=== PATIENT | male | born 1960 | race African-American/Black ===

== ENCOUNTER 2019-01-11 22:45 | Emergency (ER) | payer MEDICAID ==
[~2019-01-11] VITALS: Ht 180.3 cm; Wt 86.0 kg
[2019-01-11] MEDS ORDERED: LORAZEPAM 2MG/ML CPJ IM ONE (23:45)
[2019-01-12 00:23] LABS: *BARBITURATES SCREEN URINE NEGATIVE (NEGATIVE)
[2019-01-12 00:24] LABS: *AMPHETAMINES SCREEN URINE NEGATIVE (NEGATIVE); *BENZODIAZEPINES SCREEN URINE NEGATIVE (NEGATIVE); *COCAINE SCREEN URINE NEGATIVE (NEGATIVE); CANNABINOID URINE SCREEN PRESUMTIVE POSITIVE (NEGATIVE); METHADONE URINE SCREEN NEGATIVE (NEGATIVE); OPIATES URINE SCREEN NEGATIVE (NEGATIVE); PHENCYCLIDINE URINE SCREEN NEGATIVE (NEGATIVE)
[2019-01-12 00:57] LABS: BASOPHILS % 0.6 % (0.0-2.0); EOSINOPHILS % 1.3 % (0.0-5.0); HEMOGLOBIN. 12.3 g/dL (14.0-18.0); LYMPHOCYTES % 29.4 % (20.0-50.0); MEAN CORPUSCULAR HEMOGLOBIN 29.9 pg (28.0-32.0); MEAN CORPUSCULAR VOLUME 89.6 fL (80.0-94.0); MEAN PLATELET VOLUME 8.2 fl (7.4-10.4); MONOCYTES % 5.3 % (2.0-8.0); NEUTROPHILS % 63.4 % (40.0-76.0); PLATELET 150 x1000/uL (130-400); RED BLOOD CELL COUNT 4.13 mill/uL (4.7-6.1); RED CELL DISTRIBUTION WIDTH 14.3 % (11.6-14.6)
[2019-01-12 01:03] LABS: CHLORIDE 109 mEq/L (98-107)
[2019-01-12 01:08] LABS: ETHANOL BLOOD 191 mg/dL
[2019-01-12] MEDS ORDERED: POTASSIUM CHLORIDE 20MEQ TABLET SR PO SCH (01:30)
[2019-01-12 06:00] VITALS: BP 110/69
== END 2019-01-12 11:08 | disposition home or self-care (01) ==
LOC: ER 23:31
DX: F29 Unspecified psychosis not due to a substance or known physiological condition (principal); R45.6 Violent behavior; I25.2 Old myocardial infarction
CPT/HCPCS: 36415; 80053; 80305; 80307; 80320; 80329; 85025; 96372; 99284; J2060; G0480

== ENCOUNTER 2021-11-02 22:42 | Emergency (ER) | payer MEDICAID ==
[~2021-11-02] VITALS: Ht 185.4 cm; Wt 91.0 kg
[2021-11-02 23:44] VITALS: BP 139/77
== END 2021-11-02 23:47 ==
LOC: ER 22:42
DX: R07.89 Other chest pain (principal); F91.8 Other conduct disorders; I25.2 Old myocardial infarction; F17.210 Nicotine dependence, cigarettes, uncomplicated; Z78.1 Physical restraint status
CPT/HCPCS: 93005; 99283

== ENCOUNTER 2023-06-27 11:12 | Emergency (ER) | payer MEDICAID ==
[~2023-06-27] VITALS: Ht 188 cm; Wt 79.0 kg
[2023-06-27 11:19] VITALS: BP 125/71; PULSE 82; RESP 20; TEMP 98.2; O2SAT 98
[2023-06-27] MEDS ORDERED: METOCLOPRAMIDE HCL 10MG/2ML VIAL IM ONE (11:30)
== END 2023-06-27 13:13 | disposition left against medical advice (07) ==
LOC: ER 11:59
DX: R06.02 Shortness of breath (principal); R06.6 Hiccough
CPT/HCPCS: 71045; 99283

== ENCOUNTER 2023-06-27 15:48 | Inpatient (IN) | payer MEDICAID, OTHER ==
[~2023-06-27] VITALS: Ht 193 cm; Wt 85.3 kg
[2023-06-27] MEDS ORDERED: IPRATROPIUM BROMIDE (0.02%) 0.5MG/2.5ML NEB HHN STA (16:16)
[2023-06-27] MEDS ORDERED: ALBUTEROL (0.083%) 2.5MG/3ML NEB HHN STA (16:16)
[2023-06-27 16:48] LABS: HEMOGLOBIN. 11.6 g/dL (14.0-18.0); MEAN CORPUSCULAR HEMOGLOBIN 29.6 pg (28.0-32.0); MEAN CORPUSCULAR HGB CONC 32.3 g/dL (31.0-37.0); MEAN CORPUSCULAR VOLUME 91.7 fL (80.0-94.0); MEAN PLATELET VOLUME 8.6 fl (7.4-10.4); PLATELET 212 x1000/uL (130-400); RED BLOOD CELL COUNT 3.92 mill/uL (4.7-6.1); RED CELL DISTRIBUTION WIDTH 12.8 % (11.6-14.6); WHITE BLOOD COUNT 13.4 x1000/uL (4.5-11.0)
[2023-06-27 16:54] LABS: DIFFERENTIAL COMMENT 1
[2023-06-27 17:11] LABS: CHLORIDE 99 mEq/L (98-107); INDEX HEMOLYSI 1 (1-3); INDEX ICTERIC 1 (1-4); INDEX LIPEMIC 1 (1-3); POTASSIUM 4.2 mEq/L (3.5-5.1); SODIUM 133 mEq/L (136-145)
[2023-06-27 17:21] LABS: ALANINE AMINOTRANSFERASE 26 IU/L (13-61); ALBUMIN 3.5 g/dL (3.4-5.0); ASPARTATE AMINOTRANSFERASE 22 IU/L (15-37); BILIRUBIN TOTAL 0.9 mg/dL (0.1-1.0); CARBON DIOXIDE 29 mEq/L (21-32); CREATININE 0.9 mg/dL (0.6-1.3); GLUCOSE 101 mg/dL (70-105); PROTEIN TOTAL 7.8 g/dL (6.0-8.3); TROPONIN I HIGH SENSITIVITY 4 ng/L (<78); UREA NITROGEN BLOOD 8 mg/dL (7-21)
[2023-06-27 17:55] LABS: PLATELET ESTIMATE NORMAL
[2023-06-27 18:11] VITALS: PULSE 80; RESP 20
[2023-06-27] MEDS ORDERED: CEFTRIAXONE 1GM PREMIX 50 ML IV ONE (18:30)
[2023-06-27] MEDS ORDERED: AZITHROMYCIN 500 MG in DEXT 5% WATER 250 ML IV SCH (18:30)
[2023-06-27] MEDS ORDERED: IPRATROPIUM BROMIDE (0.02%) 0.5MG/2.5ML NEB HHN NR (18:30)
[2023-06-27] MEDS ORDERED: ALBUTEROL (0.083%) 2.5MG/3ML NEB HHN NR ×2 (18:30)
[2023-06-27] MEDS ORDERED: AZITHROMYCIN 500MG/250ML 250 ML IV SCH (19:00)
[2023-06-28] VITALS (8 sets, daily range): BP systolic 85–132; BP diastolic 51–88; PULSE 60–79; RESP 18–20; TEMP 96.5–98.2
[2023-06-28] MEDS ORDERED: LORAZEPAM 0.5MG TABLET PO PRN
[2023-06-28] MEDS ORDERED: CLONIDINE 0.1MG TABLET PO PRN
[2023-06-28] MEDS ORDERED: SODIUM CHLORIDE 0.9% 1,000 ML IV NR
[2023-06-28] MEDS ORDERED: ACETAMINOPHEN 325MG TABLET PO PRN
[2023-06-28] MEDS ORDERED: ONDANSETRON HCL 4MG/2ML INJ IV PRN
[2023-06-28 07:29] LABS: BASOPHILS % 0.4 % (0.0-2.0); EOSINOPHILS % 0.3 % (0.0-5.0); HEMATOCRIT. 36.5 % (42.0-52.0); HEMOGLOBIN. 12.1 g/dL (14.0-18.0); LYMPHOCYTES % 8.6 % (20.0-50.0); MEAN CORPUSCULAR HEMOGLOBIN 30.2 pg (28.0-32.0); MEAN CORPUSCULAR HGB CONC 33.2 g/dL (31.0-37.0); MEAN PLATELET VOLUME 8.9 fl (7.4-10.4); MONOCYTES % 7.6 % (2.0-8.0); NEUTROPHILS % 83.1 % (40.0-76.0); PLATELET 272 x1000/uL (130-400); RED BLOOD CELL COUNT 4.01 mill/uL (4.7-6.1); RED CELL DISTRIBUTION WIDTH 12.7 % (11.6-14.6); WHITE BLOOD COUNT 12.9 x1000/uL (4.5-11.0)
[2023-06-28 07:57] LABS: CREATINE KINASE MB FRACTION 1.3 ng/mL (0.5-3.6)
[2023-06-28 08:23] LABS: CHLORIDE 102 mEq/L (98-107); INDEX HEMOLYSI 3 (1-3); INDEX ICTERIC 1 (1-4); INDEX LIPEMIC 1 (1-3); POTASSIUM 4.1 mEq/L (3.5-5.1); SODIUM 135 mEq/L (136-145)
[2023-06-28 08:27] LABS: CALCIUM 8.4 mg/dL (8.5-10.1); CARBON DIOXIDE 28 mEq/L (21-32); CREATININE 0.9 mg/dL (0.6-1.3); GLUCOSE 75 mg/dL (70-105); UREA NITROGEN BLOOD 7 mg/dL (7-21)
[2023-06-28] MEDS: ENOXAPARIN 40MG/0.4ML SYR SUBCUT SCH (09:47)
[2023-06-28] MEDS: PANTOPRAZOLE SODIUM 40 MG/VIAL IV SCH (09:47)
[2023-06-28] MEDS: AZITHROMYCIN 500 MG in DEXT 5% WATER 250 ML IV SCH (10:00)
[2023-06-28] MEDS: IPRATROPIUM/ALBUTEROL 0.5-3(2.5)MG/3ML NEB HHN SCH ×4 (10:41→20:51)
[2023-06-28] MEDS: CEFTRIAXONE 1,000 MG in DEXTROSE 5% WATER 50 ML IV SCH (10:45)
[2023-06-28 16:55] LABS: CREATINE KINASE MB FRACTION 1.7 ng/mL (0.5-3.6)
[2023-06-28] MEDS ORDERED: HYDROCODONE/ACETAMINOPHEN 5/325MG TABLET PO PRN (18:15)
[2023-06-28] MEDS: PREDNISONE 20MG TABLET PO SCH (18:15)
[2023-06-28] MEDS ORDERED: NALOXONE HCL 0.4MG/ML VIAL IV PRN (18:30)
[2023-06-29] MEDS: IPRATROPIUM/ALBUTEROL 0.5-3(2.5)MG/3ML NEB HHN SCH ×3 (04:00→09:43)
[2023-06-29 08:15] LABS: HEMATOCRIT. 36.2 % (42.0-52.0); HEMOGLOBIN. 11.9 g/dL (14.0-18.0); MEAN CORPUSCULAR HEMOGLOBIN 29.8 pg (28.0-32.0); MEAN CORPUSCULAR HGB CONC 32.9 g/dL (31.0-37.0); MEAN CORPUSCULAR VOLUME 90.4 fL (80.0-94.0); MEAN PLATELET VOLUME 8.7 fl (7.4-10.4); PLATELET 336 x1000/uL (130-400); RED BLOOD CELL COUNT 4.01 mill/uL (4.7-6.1); WHITE BLOOD COUNT 11.3 x1000/uL (4.5-11.0)
[2023-06-29 08:18] LABS: DIFFERENTIAL COMMENT 1
[2023-06-29 08:40] LABS: CHLORIDE 101 mEq/L (98-107); INDEX HEMOLYSI 1 (1-3); INDEX ICTERIC 1 (1-4); INDEX LIPEMIC 1 (1-3); POTASSIUM 5.1 mEq/L (3.5-5.1); SODIUM 134 mEq/L (136-145)
[2023-06-29 08:47] LABS: CALCIUM 9.1 mg/dL (8.5-10.1); CARBON DIOXIDE 29 mEq/L (21-32); CREATININE 0.9 mg/dL (0.6-1.3); GLUCOSE 82 mg/dL (70-105); UREA NITROGEN BLOOD 10 mg/dL (7-21)
[2023-06-29] MEDS: CEFTRIAXONE 1,000 MG in DEXTROSE 5% WATER 50 ML IV SCH (09:00)
[2023-06-29] MEDS: PANTOPRAZOLE SODIUM 40 MG/VIAL IV SCH (09:00)
[2023-06-29] MEDS: ENOXAPARIN 40MG/0.4ML SYR SUBCUT SCH (09:00)
[2023-06-29] MEDS: PREDNISONE 20MG TABLET PO SCH (09:48)
[2023-06-29] MEDS: AZITHROMYCIN 500 MG in DEXT 5% WATER 250 ML IV SCH (10:00)
[2023-06-29 14:12] LABS: PLATELET ESTIMATE NORMAL
[2023-06-30] MEDS ORDERED: AMOX-494 MT (07:30)
[2023-06-30] MEDS ORDERED: ONDA4TAB50 MT (07:30)
[2023-06-30] MEDS ORDERED: FAMOTIDINE 20MG/2ML VIAL IV SCH (09:00)
== END 2023-06-29 09:55 | disposition left against medical advice (07) | DRG 139 ==
LOC: ER 15:55 → MICUSO 19:19 → EDBEDREQTM 19:54 → EDBEDREQ 19:54 → 6EST 06-28 00:14
PROVIDERS: ADMIT Internal Medicine; ATTEND Internal Medicine
DX: J18.9 Pneumonia, unspecified organism (principal); J44.0 Chronic obstructive pulmonary disease with (acute) lower respiratory infection; I10 Essential (primary) hypertension; I25.10 Atherosclerotic heart disease of native coronary artery without angina pectoris; K40.90 Unilateral inguinal hernia, without obstruction or gangrene, not specified as recurrent; Z53.29 Procedure and treatment not carried out because of patient's decision for other reasons; F20.9 Schizophrenia, unspecified; F17.210 Nicotine dependence, cigarettes, uncomplicated; Z60.8 Other problems related to social environment
CPT/HCPCS: 36415; 80048; 80053; 82550; 82553; 84484; 85025; 85379; 93005; 93970; 94640; 99285; C9113; J0456; J0696; J1650; J7060; J7512

== ENCOUNTER 2023-06-30 07:17 | Emergency (ER) | payer MEDICAID, OTHER ==
[~2023-06-30] VITALS: Ht 177.8 cm; Wt 75.0 kg
[2023-06-30 07:26] VITALS: BP 138/72; PULSE 76; RESP 18; TEMP 98; O2SAT 99
[2023-06-30] MEDS ORDERED: ONDA4TAB50 MT (07:30)
[2023-06-30] MEDS ORDERED: AMOX-494 MT (07:30)
== END 2023-06-30 08:25 | disposition home or self-care (01) ==
LOC: ER 07:39
DX: J18.9 Pneumonia, unspecified organism (principal); R11.2 Nausea with vomiting, unspecified; J45.909 Unspecified asthma, uncomplicated
CPT/HCPCS: 99283